=== PATIENT | male | born 1955 | race Caucasian/White ===

== ENCOUNTER → 2020-09-21 | Outpatient (CLI) | payer MEDICARE ==
--- NOTE | 2020-09-21 11:22 | Diagnostic Imaging Report ---
X-ray chest 2 views History: Preop Comparison: None Findings: Central airways: Unremarkable. Heart: Normal size. Mediastinal silhouettes: Unremarkable. Pleural spaces: No pleural effusion or pneumothorax. Lungs: No significant focal lung disease. Skeletal structures: Unremarkable. Extrathoracic soft tissues: Unremarkable. Impression: No significant abnormality on this exam. Signed by: Phillip Frazier MD on 09/21/2020 11:19 AM
== END ==
LOC: RAD 10:34
PROVIDERS: ATTEND Family Medicine
DX: Z01.818 Encounter for other preprocedural examination (principal); I10 Essential (primary) hypertension; I25.10 Atherosclerotic heart disease of native coronary artery without angina pectoris
CPT/HCPCS: 71046; 93005

== ENCOUNTER 2020-10-12 08:16 | Observation (INO) | payer MEDICARE ==
[~2020-10-12] VITALS: Ht 175.3 cm; Wt 90.7 kg
[~2020-10-12 08:16] MED LIST: ASPIRIN EC81 MG PO; ATORVASTATIN CA20 MG PO; CARVEDILOL3.125 MG PO; CBD OIL PO; LISINOPRIL10 MG PO; ROPIVACAINE 246.25 MG, EPINEPHRINE HCL 1:1000 1ML 0.5 MG, CLONIDINE HCL 0.08 MG, KETORO... INJ ONE
[2020-10-12] MEDS ORDERED: DEXAMETHASONE SOD PHOS 10 MG/1 ML VIAL ONE (09:01)
[2020-10-12] MEDS ORDERED: CELECOXIB 200 MG CAP ONE (09:01)
[2020-10-12] MEDS ORDERED: GABAPENTIN 300 MG CAP ONE (09:01)
[2020-10-12] MEDS ORDERED: CEFAZOLIN SOD 1 GM/NS 50ML 100 ML IV ONE (09:02)
[2020-10-12] MEDS ORDERED: VANCOMYCIN HCL 1,000 MG ONE (10:21)
[2020-10-12] MEDS ORDERED: TRANEXAMIC ACID 1,000 MG/10 ML ML ONE (10:21)
[2020-10-12] MEDS ORDERED: SODIUM CHLORIDE 0.9% 500ML 500 ML ONE (10:21)
[2020-10-12] MEDS ORDERED: ONDANSETRON HCL INJ 2MG/ML 2ML 2 MG/ML VIAL IV PRN (12:15)
[2020-10-12] MEDS ORDERED: KETOROLAC TROMETHAMINE 30 MG/ML VIAL IV PRN (12:15)
[2020-10-12] MEDS ORDERED: HYDROCODONE/APAP 5MG-325MG TAB PO PRN (12:15)
[2020-10-12] MEDS ORDERED: DOCUSATE SODIUM 100 MG CAP PO PRN (12:15)
[2020-10-12] MEDS ORDERED: DIPHENHYDRAMINE HCL INJ 50 MG/ML VIAL IV PRN (12:15)
[2020-10-12] MEDS ORDERED: ACETAMINOPHEN 650 MG SUPP PR PRN (12:15)
[2020-10-12] MEDS ORDERED: HYDROMORPHONE 1MG/1ML INJ ONE (12:24)
[2020-10-12] MEDS ORDERED: MEPERIDINE HCL INJ 25 MG/ML VIAL ONE (12:29)
[2020-10-12] MEDS ORDERED: SEVOFLURANE INHAL SOLN 250 ML PEN BTL ONE (13:36)
[2020-10-12] MEDS ORDERED: ONDANSETRON HCL INJ 2MG/ML 2ML 2 MG/ML VIAL ONE (13:36)
[2020-10-12] MEDS ORDERED: PROPOFOL IV EMULSION 10 MG/ML 20 ML VIAL ONE (13:36)
[2020-10-12] MEDS ORDERED: LIDOCAINE HCL 2% LOCAL INJ 5 ML SDV VIAL INJ ONE (13:36)
[2020-10-12] MEDS ORDERED: DEXAMETHASONE SOD PHOS INJ 4 MG/ML VIAL ONE (13:36)
[2020-10-12] MEDS ORDERED: KETOROLAC TROMETHAMINE 30 MG/ML VIAL ONE (16:41)
[2020-10-12] MEDS ORDERED: HYDROCODONE/APAP 7.5MG-325MG 1 EA TAB ONE (16:41)
[2020-10-12] MEDS ORDERED: LIDOCAINE 2%/ EPINEPHRINE 20ML MDV ONE (17:33)
[2020-10-12] MEDS ORDERED: ROPIVACAINE 0.5% 5 MG/ML 30 ML SDV ONE (17:33)
[2020-10-12] MEDS ORDERED: CEFAZOLIN SOD 1 GM/NS 50ML 50 ML IV SCH (18:30)
[2020-10-12] MEDS ORDERED: ATORVASTATIN 20 MG TAB PO SCH (21:00)
[2020-10-12] MEDS ORDERED: ZOLPIDEM TARTRATE 5 MG TAB PO PRN (21:00)
[2020-10-12] MEDS ORDERED: LISINOPRIL 10 MG TAB PO SCH (21:00)
[2020-10-12] MEDS: HYDROCODONE/APAP 7.5MG-325MG 1 EA TAB PO PRN (21:10)
[2020-10-12] MEDS: SODIUM CHLORIDE 0.9% 1000ML 1,000 ML IV SCH (21:10)
[2020-10-12] MEDS: CELECOXIB 200 MG CAP PO SCH (21:10)
[2020-10-12] MEDS: ASPIRIN 325 MG TAB PO SCH (21:10)
[2020-10-12 22:00] VITALS: BP 126/77
[2020-10-12] MEDS: CARVEDILOL 3.125 MG TAB PO SCH (22:00)
[2020-10-12 22:19] VITALS: BP 126/77
[2020-10-13] VITALS: BP 103/76
[2020-10-13] MEDS: SODIUM CHLORIDE 0.9% 1000ML 1,000 ML IV SCH (02:46)
[2020-10-13] MEDS: HYDROCODONE/APAP 7.5MG-325MG 1 EA TAB PO PRN ×3 (03:52→09:09)
[2020-10-13 04:00] VITALS: BP 140/97
[2020-10-13] MEDS ORDERED: CEFAZOLIN SOD 1 GM/NS 50ML 50 ML IV SCH (05:00)
[2020-10-13 07:41] LABS: HEMATOCRIT 34.5 % (38.2-49.6); HEMOGLOBIN 11.7 g/dL (14.0-18.0)
[2020-10-13 08:43] VITALS: BP 141/84
[2020-10-13 08:56] VITALS: BP 141/84
[2020-10-13] MEDS ORDERED: ASPIRIN 81 MG ENTERIC COATED PO SCH (09:00)
[2020-10-13] MEDS: ASPIRIN 325 MG TAB PO SCH (09:07)
[2020-10-13] MEDS: CELECOXIB 200 MG CAP PO SCH (09:07)
[2020-10-13] MEDS: CARVEDILOL 3.125 MG TAB PO SCH (09:08)
[2020-10-13 12:01] VITALS: BP 120/83
[2020-10-13] MEDS ORDERED: ACETAMINOPHEN 1000 MG/100 ML IV PRN (12:15)
[2020-10-13] MEDS ORDERED: ONDANSETRON HCL 4 MG ORAL DISINTEGRATING TAB PO PRN (12:45)
== END 2020-10-13 12:45 | disposition home or self-care (01) ==
LOC: OR 08:16 → PACU V 12:07 → MED/SURG 20:45 → UNDODISOB 10-13 12:06
PROVIDERS: ADMIT Specialist; ATTEND Specialist
DX: M17.0 Bilateral primary osteoarthritis of knee (principal); I10 Essential (primary) hypertension; Z20.828 Contact with and (suspected) exposure to other viral communicable diseases; Z01.818 Encounter for other preprocedural examination; D64.9 Anemia, unspecified; G89.18 Other acute postprocedural pain
CPT/HCPCS: 27447; 36415; 64450; 73560; 85014; 85018; 86850; 86900; 86920; 97110; 97116; 97139; 97162; 97530; C1713; G0378 ×2; J0171; J0690 ×2; J1100 ×2; J1170; J1885; J2001 ×2; J2175; J2405; J2704; J2795; J3370; J7030; J7040; U0002

== ENCOUNTER 2020-11-23 12:49 | Outpatient (RCR) | payer MEDICARE ==
[~2020-11-23 12:49] MED LIST changes: -ROPIVACAINE 246.25 MG, EPINEPHRINE HCL 1:1000 1ML 0.5 MG, CLONIDINE HCL 0.08 MG, KETORO... INJ ONE
== END 2020-11-29 ==
LOC: PT 12:49
PROVIDERS: ATTEND Specialist
DX: Z96.651 Presence of right artificial knee joint (principal); Z47.1 Aftercare following joint replacement surgery; M25.561 Pain in right knee; M25.661 Stiffness of right knee, not elsewhere classified

== ENCOUNTER 2020-12-25 13:00 | Outpatient (RCR) | payer MEDICARE | END 2020-12-27 | LOC: PT 13:00 | PROVIDERS: ATTEND Specialist | DX: Z96.651 Presence of right artificial knee joint (principal); Z47.1 Aftercare following joint replacement surgery; M25.561 Pain in right knee; M25.661 Stiffness of right knee, not elsewhere classified | CPT/HCPCS: 97139 ==

== ENCOUNTER 2021-01-20 13:00 | Outpatient (RCR) | payer MEDICARE | END 2021-01-27 | LOC: PT 13:00 | PROVIDERS: ATTEND Specialist | DX: Z96.651 Presence of right artificial knee joint (principal); Z47.1 Aftercare following joint replacement surgery; M25.561 Pain in right knee; M25.661 Stiffness of right knee, not elsewhere classified ==

== ENCOUNTER 2022-06-27 07:23 | Observation (INO) | payer MEDICARE ==
[~2022-06-27] VITALS: Ht 172.7 cm; Wt 93.0 kg
[2022-06-27] MEDS ORDERED: ROPIVACAINE 246.25 MG, EPINEPHRINE HCL 1:1000 1ML 0.5 MG, CLONIDINE HCL 0.08 MG, KETORO... INJ ONE ×5 (07:30)
[2022-06-27] MEDS ORDERED: SODIUM CHLORIDE 0.9% 250ML 250 ML ONE (07:51)
[2022-06-27] MEDS ORDERED: Vancomycin IV 1,000 MG ONE (07:51)
[2022-06-27] MEDS ORDERED: TRANEXAMIC ACID 20 ML ONE (07:51)
[2022-06-27] MEDS ORDERED: DEXAMETHASONE SOD PHOS 10 MG/1 ML VIAL ONE (08:13)
[2022-06-27] MEDS ORDERED: GABAPENTIN 300 MG CAP ONE (08:13)
[2022-06-27] MEDS ORDERED: CELECOXIB 200 MG CAP ONE (08:13)
[2022-06-27] MEDS ORDERED: DIPHENHYDRAMINE HCL INJ 50 MG/ML VIAL IV PRN (11:00)
[2022-06-27] MEDS ORDERED: DOCUSATE SODIUM 100 MG CAP PO PRN (11:00)
[2022-06-27] MEDS ORDERED: ZOLPIDEM TARTRATE 5 MG TAB PO PRN (11:00)
[2022-06-27] MEDS ORDERED: KETOROLAC TROMETHAMINE 30 MG/ML VIAL IV PRN (11:00)
[2022-06-27] MEDS ORDERED: HYDROCODONE/APAP 7.5MG-325MG 1 EA TAB PO PRN (11:00)
[2022-06-27] MEDS ORDERED: ACETAMINOPHEN 650 MG SUPP PR PRN (11:00)
[2022-06-27] MEDS ORDERED: HYDROCODONE/APAP 5MG-325MG TAB PO PRN (11:00)
[2022-06-27] MEDS ORDERED: ONDANSETRON HCL INJ 2MG/ML 2ML 2 MG/ML VIAL IV PRN (11:00)
[2022-06-27] MEDS ORDERED: SODIUM CHLORIDE 0.9% 1000ML 1,000 ML IV SCH (11:00)
[2022-06-27] MEDS ORDERED: FENTANYL CITRATE/PF 100MCG/2 ML INJ ONE ×2 (11:39→14:03)
[2022-06-27 12:18] VITALS: BP 136/87
[2022-06-27 12:24] VITALS: BP 136/87
[2022-06-27] MEDS ORDERED: MIDAZOLAM HCL 2 MG/2 ML VIAL ONE (14:03)
[2022-06-27 15:49] VITALS: BP 152/75
[2022-06-27] MEDS ORDERED: ASPIRIN 325 MG TAB PO SCH (17:00)
[2022-06-27] MEDS ORDERED: CELECOXIB 200 MG CAP PO SCH (17:00)
[2022-06-27] MEDS ORDERED: PROPOFOL IV EMULSION 10 MG/ML 20 ML VIAL ONE (17:13)
[2022-06-27] MEDS ORDERED: ROCURONIUM BROMIDE 10 MG/ML 5ML VIAL IV ONE (17:13)
[2022-06-27] MEDS ORDERED: POVIDONE IODINE 0.05% 0.05 % ML PO ONE (17:13)
[2022-06-27] MEDS ORDERED: EPHEDRINE SULFATE INJ 50 MG/ML VIAL ONE (17:13)
[2022-06-27] MEDS ORDERED: SEVOFLURANE INHAL SOLN 250 ML PEN BTL ONE (17:13)
[2022-06-27] MEDS ORDERED: ONDANSETRON HCL INJ 2MG/ML 2ML 2 MG/ML VIAL ONE (17:13)
[2022-06-28] MEDS ORDERED: ACETAMINOPHEN 1000 MG/100 ML IV PRN (11:00)
== END 2022-06-27 18:09 | disposition home or self-care (01) ==
LOC: OR 07:23 → PACU V 10:52 → MED/SURG 11:54
PROVIDERS: ADMIT Specialist; ATTEND Specialist
DX: M16.11 Unilateral primary osteoarthritis, right hip (principal); Z01.818 Encounter for other preprocedural examination; Z20.822 Contact with and (suspected) exposure to COVID-19; I10 Essential (primary) hypertension; E78.5 Hyperlipidemia, unspecified; E66.09 Other obesity due to excess calories; Z68.31 Body mass index [BMI] 31.0-31.9, adult
CPT/HCPCS: 0223U; 27130; 36415; 71046; 72170; 86850; 86900; 86920; 94799; 97116 ×2; 97161; 97530; C1713; C1776 ×3; G0378; J0171; J0690; J1100; J1885; J2250; J2405; J2704; J2795; J3010; J3370; J7030; J7050

== ENCOUNTER 2024-04-24 13:00 | Outpatient (RCR) | payer MEDICARE ==
[~2024-04-24 13:00] MED LIST changes: +IBUPROFEN200 MG PO
== END 2024-04-28 ==
LOC: PT 13:00
PROVIDERS: ATTEND Physician Assistant
DX: Z47.1 Aftercare following joint replacement surgery (principal); Z96.652 Presence of left artificial knee joint; M25.561 Pain in right knee; M25.661 Stiffness of right knee, not elsewhere classified; R26.2 Difficulty in walking, not elsewhere classified

== ENCOUNTER 2024-05-17 14:55 | Outpatient (RCR) | payer MEDICARE | END 2024-05-29 | LOC: PT 14:55 | PROVIDERS: ATTEND Physician Assistant | DX: Z47.1 Aftercare following joint replacement surgery (principal); Z96.652 Presence of left artificial knee joint; M25.561 Pain in right knee; M25.661 Stiffness of right knee, not elsewhere classified; R26.2 Difficulty in walking, not elsewhere classified ==

== ENCOUNTER 2024-06-07 15:00 | Outpatient (RCR) | payer MEDICARE | END 2024-06-29 | LOC: PT 15:00 | PROVIDERS: ATTEND Physician Assistant | DX: Z47.1 Aftercare following joint replacement surgery (principal); Z96.652 Presence of left artificial knee joint; M25.561 Pain in right knee; M25.661 Stiffness of right knee, not elsewhere classified; R26.2 Difficulty in walking, not elsewhere classified ==